=== PATIENT | male | born 1985 | race African-American/Black ===

== ENCOUNTER 2017-11-16 23:38 | Emergency (ER) | payer SELFPAY ==
[~2017-11-16] VITALS: Ht 188 cm; Wt 81.6 kg
--- NOTE | 2017-11-16 23:47 | NUR ---
Dr. Yo at bedside for MSE.
--- NOTE | 2017-11-16 23:49 | NUR ---
Patient ambulated to ER with steady gait, c/o chestpain x 2 days, pain 2/10, increases when taking a deep breath. Patient reports to have had chest pain with afib before, but that was when he was drinking lots of energy drinks, reports to not have touched energy drinks ever since.
--- NOTE | 2017-11-16 23:57 | NUR ---
Xray at bedside.
[2017-11-17 00:12] LABS: BASOPHILS % (AUTO) 0.8 % (0.0-2.0); EOSINOPHILS # (AUTO) 0.2 K/uL (0.0-0.7); EOSINOPHILS % (AUTO) 3.5 % (0.0-7.0); HEMATOCRIT 40.2 % (36.7-47.1); HEMOGLOBIN 13.6 g/dL (12.5-16.3); LYMPHOCYTES # (AUTO) 2.3 K/uL (20.0-40.0); LYMPHOCYTES % (AUTO) 47.4 % (20.5-51.5); MEAN CORPUSCULAR HEMOGLOBIN 29.1 uug (23.8-33.4); MEAN CORPUSCULAR HGB CONC 34 g/dL (32.5-36.3); MEAN CORPUSCULAR VOLUME 85.6 fL (73.0-96.2); MONOCYTES # (AUTO) 0.6 K/uL (2.0-10.0); NEUTROPHILS # (AUTO) 1.8 K/uL (1.8-8.9); NEUTROPHILS % (AUTO) 36.3 % (38.5-71.5); PLATELET COUNT (AUTO) 192 K/uL (152-348); RED BLOOD CELL COUNT(AUTO) 4.69 MIL/uL (4.06-5.63); WHITE BLOOD COUNT (AUTO) 4.9 K/uL (3.6-10.2)
[2017-11-17 00:41] LABS: ALANINE AMINOTRANSFERASE 26 U/L (16-63); ALKALINE PHOSPHATASE 61 U/L (50-136); ASPARTATE AMINOTRANSFERASE 19 U/L (15-37); BILIRUBIN,DIRECT 0.1 mg/dL (0.0-0.2); BILIRUBIN,TOTAL 0.4 mg/dL (0.2-1.0); CARBON DIOXIDE 27 mmol/L (21-32); CHLORIDE 105 mmol/L (98-107); CREATININE 1.2 mg/dL (0.6-1.3); GLUCOSE 100 mg/dL (74-106); POTASSIUM 4.1 mmol/L (3.5-5.1); TOTAL PROTEIN, SERUM 7.3 g/dL (6.4-8.2); UREA NITROGEN, BLOOD 16 mg/dL (7-18)
--- NOTE | 2017-11-17 01:00 | NUR ---
Pt in bed sleeping, no acute signs of distress.
--- NOTE | 2017-11-17 02:00 | NUR ---
Pt in bed sleeping, no acute signs of distress.
[2017-11-17] MEDS ORDERED: ASPIRIN 325 MG TABLET ONE (03:43)
[2017-11-17] MEDS: ASPIRIN 325 MG TABLET PO ONE (03:53)
--- NOTE | 2017-11-17 03:55 | NUR ---
Patient discharged to home in stable conditon with family taking patient home. Written and verbal after care instructions given. Patient verbalizes understanding of instructions. Walked out of ER with no distress noted
[2017-11-17 03:56] VITALS: BP 128/82
== END 2017-11-17 03:56 | disposition home or self-care (01) ==
LOC: ER 23:40
DX: R07.9 Chest pain, unspecified (principal); I48.91 Unspecified atrial fibrillation
CPT/HCPCS: 36415; 70030-TC; 71045; 85025; 85730; 93005; A4663